=== PATIENT | male | born 2000 | race Caucasian/White ===

== ENCOUNTER 2023-07-04 07:32 | Emergency (ER) | payer SELFPAY ==
[2023-07-04] MEDS ORDERED: Amoxicillin/Potassium Clav 875 MG TAB ONE (08:28)
== END 2023-07-04 08:29 | disposition home or self-care (01) ==
LOC: MADERS 07:32
DX: K04.7 Periapical abscess without sinus (principal)
CPT/HCPCS: 99282

== ENCOUNTER 2023-12-12 07:18 | Emergency (ER) | payer BC | END 2023-12-12 08:09 | disposition home or self-care (01) | LOC: MADERS 07:18 | DX: J02.9 Acute pharyngitis, unspecified (principal) | CPT/HCPCS: 87081; 87430; 99283 ==